=== PATIENT | male | born 1970 | race Asian ===

== ENCOUNTER 2020-08-21 11:32 | Emergency (ER) | payer MEDICAID ==
[~2020-08-21] VITALS: Ht 165.1 cm; Wt 57.3 kg
[2020-08-21 13:38] LABS: BASOPHILS % (AUTO) 0.3 % (0-1); EOSINOPHILS # (AUTO) 0.1 X10'3 (0-0.9); EOSINOPHILS % (AUTO) 0.8 % (0-6); HEMATOCRIT 46.7 % (42.0-52.0); HEMOGLOBIN 15.8 g/dl (14.0-17.9); LYMPHOCYTES # (AUTO) 1.4 X10'3 (1.1-4.8); LYMPHOCYTES % (AUTO) 17.3 % (21-51); MEAN CORPUSCULAR HEMOGLOBIN 32.2 PG (27.0-31.0); MEAN CORPUSCULAR HGB CONC 33.8 g/dL (33.0-36.5); MEAN CORPUSCULAR VOLUME 95.3 FL (78-98); MEAN PLATELET VOLUME 7.3 FL (7.4-10.4); MONOCYTES # (AUTO) 0.8 X10'3 (0-0.9); MONOCYTES % (AUTO) 9.5 % (2-12); NEUTROPHILS % (AUTO) 72.1 % (42-75); PLATELET COUNT 220 X10'3 (140-440); RED BLOOD COUNT 4.91 X10'6 (4.70-6.10); RED CELL DISTRIBUTION WIDTH 13.2 % (11.5-14.5); WHITE BLOOD COUNT 8.3 X10'3 (4.5-11.0)
[2020-08-21 13:55] LABS: PARTIAL THROMBOPLASTIN TIME 32 SECONDS (22-32)
[2020-08-21 13:57] LABS: ALANINE AMINOTRANSFERASE 33 U/L (12-78); ALBUMIN 3.1 G/DL (3.4-5.0); ALBUMIN/GLOBULIN RATIO 0.6 (1.1-1.5); ALKALINE PHOSPHATASE 153 IU/L (46-116); ANION GAP 7 (8-16); ASPARTATE AMINO TRANSFERASE 33 U/L (10-37); BILIRUBIN,TOTAL 0.6 MG/DL (0.1-1.0); BLOOD UREA NITROGEN 13 MG/DL (7-18); BUN/CREATININE RATIO 14.3 (5.4-32.0); CALCIUM 9.1 MG/DL (8.5-10.1); CHLORIDE 104 MMOL/L (99-107); CREATININE 0.91 MG/DL (0.60-1.10); GLUCOSE 90 MG/DL (70-104); POTASSIUM 4.4 MMOL/L (3.5-5.1); SODIUM 139 MMOL/L (135-145); TOTAL CARBON DIOXIDE 27.6 MMOL/L (24-32); TOTAL PROTEIN 7.9 G/DL (6.4-8.2); eGFR 88 ML/MIN
--- NOTE | 2020-08-21 14:17 | NUR ---
PATIENT STATES THAT HIS COUGH HAS BEEN ONGOING SINCE DECEMBER 2019. HIS COUGH IS REGULAR AND PERSISTENT AND SOUNDS MORE LIKE A GRUNT, ALMOST CROUPLIKE
--- NOTE | 2020-08-21 14:18 | NUR ---
OTILIO RIOS IS BACK FROM HER BREAK
--- NOTE | 2020-08-21 14:20 | NUR ---
SPOKE TO MARITZA CHEN ABOUT PATIENT'S CXR RESULTS AND HIS CROUP LIKE COUGH AND RAD STATING CT SCAN WOULD HELP DIFFERENTIATE BETWEEN CA AND PNUEMONIA
[2020-08-21] MEDS ORDERED: iohexol 300mg/ml 100ml inj. ONE (14:47)
[2020-08-21] MEDS ORDERED: NO HOME MEDS (14:50)
--- NOTE | 2020-08-21 15:11 | NUR ---
Pt was transported to CT scan via w/c and is back in the ambulance bay treatment area awaiting results for further orders or disposition. Pt has no change in condition. Pt did point out that he has an area of bulge noted to the left axillary area and he reports it is painful 4/10 at this time.
[2020-08-21 18:32] VITALS: BP 106/81
== END 2020-08-21 18:33 | disposition home or self-care (01) ==
LOC: ER 11:34
DX: U07.1 COVID-19 (principal); C34.90 Malignant neoplasm of unspecified part of unspecified bronchus or lung; R91.8 Other nonspecific abnormal finding of lung field
CPT/HCPCS: 36415; 71045; 71260; 80053; 83880; 84484; 85025; 85610; 85730; 87635; 93005; 99285; C9803; Q9967